=== PATIENT | female | born 1990 | race Caucasian/White ===

== ENCOUNTER → 2017-06-25 13:12 | Outpatient (CLI) | payer OTHER, MEDICAID, SELFPAY ==
[2017-06-25 13:38] LABS: Absolute Lymphocyte Count 2.62 X10^3/ul (0.83-4.51); Absolute Neutrophil Count 8.6 X10^3/uL (2.0-7.7); Basophil# 0.03 X10^3/uL; Basophil% 0.2 % (0-1); Eosinophil# 0.13 X10^3/uL; Eosinophils% 1.1 % (0-5); Lymphocyte # 2.62 X10^3/ul (4.0); Lymphocyte % 21.5 % (19-41); Mean Corp Hgb Conc 33.3 g/gl (32-36); Mean Corpuscular Hgb 31.2 pg (27.0-32.0); Mean Corpuscular Volume 93.5 fL (81-99); Mean Platelet Vol. 10.2 fl (6.2-12.0); Monocyte# 0.68 X10^3/uL; Monocyte% 5.6 % (0-10); Neutrophil # 8.59 X10^3/uL (2.7-7.7); Neutrophil % 70.4 % (47-70); Platelet Count 291 K/mm3 (150-450); RBC Distribution Width CV 12.6 % (11.6-14.6); RBC Distribution Width SD 42.9 fl (35.1-43.9); Red Blood Count 3.85 M/mm3 (4.2-5.4); White Blood Count 12.2 K/mm3 (4.4-11.0)
[2017-06-25 13:40] LABS: POSITIVE COUNT NO; POSITIVE DIFFERENTIAL NO; POSITIVE MORPHOLOGY NO
[2017-06-25 13:52] LABS: Glucose Challenge Gest 1H 50g 129 mg/dL (70-140)
== END ==
PROVIDERS: Visit Provider Obstetrics & Gynecology
DX: O09.90 Supervision of high risk pregnancy, unspecified, unspecified trimester (principal); Z3A.00 Weeks of gestation of pregnancy not specified
CPT/HCPCS: 36415; 82950; 85025

== ENCOUNTER → 2017-07-11 19:05 | Outpatient (CLI) | payer OTHER, MEDICAID, SELFPAY | PROVIDERS: Visit Provider Nurse Practitioner Women's Health | DX: O23.40 Unspecified infection of urinary tract in pregnancy, unspecified trimester (principal); Z3A.00 Weeks of gestation of pregnancy not specified | CPT/HCPCS: 87086; 87088; 87186 ==

== ENCOUNTER → 2017-07-25 14:31 | Outpatient (CLI) | payer OTHER, MEDICAID, SELFPAY | PROVIDERS: Visit Provider Obstetrics & Gynecology | DX: O09.90 Supervision of high risk pregnancy, unspecified, unspecified trimester (principal); Z3A.00 Weeks of gestation of pregnancy not specified | CPT/HCPCS: 87086; 87088; 87186 ==

== ENCOUNTER 2017-08-13 22:30 | Inpatient (IN) | payer OTHER, MEDICAID, SELFPAY ==
[2017-08-13] MEDS: Betamethasone/Betamethasone 30 MG/5 ML Vial 12 MG IM (22:44)
[2017-08-13] MEDS: Lactated Ringers 1,000 ML 50 ML IV (22:45)
[2017-08-13 22:50] VITALS: BMI 32.5
[2017-08-13 23:11] LABS: Hematocrit 36.8 % (37-47); Hemoglobin 12.2 g/dl (12.0-15.0); Mean Corp Hgb Conc 33.2 g/gl (32-36); Mean Corpuscular Hgb 30.6 pg (27.0-32.0); Mean Corpuscular Volume 92.2 fL (81-99); Platelet Count 259 K/mm3 (150-450); RBC Distribution Width CV 13.5 % (11.6-14.6); Red Blood Count 3.99 M/mm3 (4.2-5.4)
[2017-08-13 23:13] LABS: Scan Indicated on CBC? Y/N NO
[2017-08-14 01:03] LABS: Group B Strep DNA By PCR Negative (Negative); Internal Control PASS; Probe Check PASS; Specimen Processing Control PASS
[2017-08-14] MEDS: Lactated Ringers 1,000 ML 50 ML IV ×4 (02:23→14:00)
[2017-08-14] MEDS: Ondansetron 4 MG/2 ML Vial IV (02:33)
[2017-08-14] MEDS: fentaNYL-bupivacaine (epidural) 100 ML BAG EPIDURAL ×2 (02:48→12:30)
--- NOTE | 2017-08-14 13:08 | PCM.PN.BLA ---
Progress Note LATE ENTRY FROM VISIT AT 8:20 am 35 4/7 wk EGA Comfortable w/ epidural AVSS EFM category I tracing. Baseline 120-130s accels mod variability. UCs difficult to assess. at times q 3-5 mins CX: 6 cm /95/-1 A/P: 35 4/7 wk labor. Progressing very slowly. Betamethasone given. continue labor. Anticipate
--- NOTE | 2017-08-14 13:10 | PCM.PN.BLA ---
Progress Note LABOR PROGRESS NOTE Comfortable w/ epidural. AVSS EFM Category I tracing. 120-130 avg variability/ mod. Accels. UCs difficult to trace CX check per last RN check: 7-8 cm A/P: 35 4/7 wk labor. continue labor. anticipate
[2017-08-14] MEDS: Oxytocin 30 units/NS 500 ml 30 UNITS/500 ML IV.SOLN 334 UNITS IV (15:40)
[2017-08-14] MEDS: Oxytocin 30 units/NS 500 ml 30 UNITS/500 ML IV.SOLN 167 UNITS IV (16:20)
[2017-08-14] MEDS: Ibuprofen 600 MG Tablet PO (17:10)
[2017-08-14 19:50] VITALS: BP 118/70; PULSE 106; RESP 16; TEMP 37; O2SAT 99
--- NOTE | 2017-08-14 20:02 | PCM.HP.OB ---
- Problem List (1) labor Status: Acute Qualifiers: labor trimester: third trimester Fetus number: single or unspecified fetus (2) 35 to 36 weeks gestation of Status: Acute History Date of Admission: 08/13/17 - LATE ENTRY H AND P -- FROM EARLY AM VISIT 08/14/17 Final MATT: 09/14/17 Gestational age: 35 Weeks and 4 Days History of this : 26 yo with 16 wk care EDC of 09/14/17, by LMP 12/08/16, presents with CC of UCs. Admitted in labor at 35 3/7 wk EGA . OB CARE started at 16 wk, complicated by: 1.) UTI treated 07/11/17 with Macrobid 2.) Thrombosed hemorrhoid , treated. 3.) FOB no longer involved with patient but present at delivery Labs: O positive, rubella immune, RPR neg, HepBSAg negative. HIV negative. CG and chlamydia negative. 1 hr glucola 129. Past OB: negative. 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 Surgical History: wisdom tooth extraction. Family history: heart disease. Social history: no alcohol or drugs, but a daily smoker NKDA Medications: vitamin Allergies strawberry Allergy (Verified 08/13/17 22:51) Hives Current Medications vitamin Smoking Status: Current every day smoker Alcohol: None Drug Use: none Number of Fetus(es): 1 Review of Systems Constitutional: Denies: Anorexia Eyes: Denies: Blurred vision Cardiovascular: Denies: Chest Pain Gastrointestinal: Reports: Abdominal Pain - contractions Physical Exam General: Alert, Oriented x3, Cooperative, No apparent distress - comfortable with epidural Abdomen: Soft, Gravid Extremities:: No clubbing, No edema Estimated gestational size: Appropriate for gestational size Cervix Dilation (cm): 5 - 5 cm at presentation Assessment/Plan Active and Suspected Problems (Last Reviewed 08/08/17 @ 13:05 by Columba Raman) labor (Acute) 35 to 36 weeks gestation of (Acute) 35 3/7 wk EGA , admitted in labor. Betamethasone and observation of labor planned Epidural placed per patient request Watch labor. Anticipate .
--- NOTE | 2017-08-14 20:12 | HP.PCM_ITS ---
- Problem List (1) labor Status: Acute Qualifiers: labor trimester: third trimester Fetus number: single or unspecified fetus (2) 35 to 36 weeks gestation of Status: Acute History Date of Admission: 08/13/17 - LATE ENTRY H AND P -- FROM EARLY AM VISIT Final MATT: 09/14/17 Gestational age: 35 Weeks and 4 Days History of this : 26 yo with 16 wk care EDC of 09/14/17, by LMP 12/08/16, presents with CC of UCs. Admitted in labor at 35 3/7 wk EGA . OB CARE started at 16 wk, complicated by: 1.) UTI treated 07/11/17 with Macrobid 2.) Thrombosed hemorrhoid , treated. 3.) FOB no longer involved with patient but present at delivery Labs: O positive, rubella immune, RPR neg, HepBSAg negative. HIV negative. CG and chlamydia negative. 1 hr glucola 129. Past OB: negative. 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 Surgical History: wisdom tooth extraction. Family history: heart disease. Social history: no alcohol or drugs, but a daily smoker NKDA Medications: vitamin Allergies strawberry Allergy (Verified 08/13/17 22:51) Hives Current Medications vitamin Smoking Status: Current every day smoker Alcohol: None Drug Use: none Number of Fetus(es): 1 Review of Systems Constitutional: Denies: Anorexia Eyes: Denies: Blurred vision Cardiovascular: Denies: Chest Pain Gastrointestinal: Reports: Abdominal Pain - contractions Physical Exam General: Alert, Oriented x3, Cooperative, No apparent distress - comfortable with epidural Abdomen: Soft, Gravid Extremities:: No clubbing, No edema Estimated gestational size: Appropriate for gestational size Cervix Dilation (cm): 5 - 5 cm at presentation Assessment/Plan Active and Suspected Problems (Last Reviewed 08/08/17 @ 13:05 by Columba Raman) labor (Acute) 35 to 36 weeks gestation of (Acute) 35 3/7 wk EGA , admitted in labor. Betamethasone and observation of labor planned Epidural placed per patient request Watch labor. Anticipate .
--- NOTE | 2017-08-14 20:16 | PCM.OB.VAG ---
- Problem List (1) labor Status: Acute Qualifiers: labor trimester: third trimester Fetus number: single or unspecified fetus (2) 35 to 36 weeks gestation of Status: Acute Vaginal Delivery Maternal Presentation: Active Labor 35 3/7 wk EGA , labor. Amniotic Membrane Rupture Type: - Final MATT: 09/14/17 Gestational age: 35 Weeks and 4 Days doctor who attended delivery (if requested by OB): Marilou Carver Date of Procedure: 08/14/17 Pre-Operative Diagnosis: 35 3/7 wk EGA , labor Post-Operative Diagnosis: 35 4/7 wk delivery Surgery/ Procedure Performed: Vacuum Assisted Vaginal Delivery Type of Anesthesia: Epidural Description of Procedure: Vacuum assisted vaginal delivery of a driscoll viable female over intact perineum. Outlet station, ANAY. Epidural catheter in place, Jimenez catheter in place. Single pull in green zone of Kiwi vacuum extractor with maternal expulsive effort resulted in delivery of vertex. Nuchal cord x one reduced on perineum. shoulders delivered easily. Infant to maternal abdomen with spontaneous cry. Cord clamped x two and cut. Routine cord blood for typing collected. PP exam; 2nd degree vaginal laceration repaired under epidural to hemostatic and intact with 3-0 Vicryl. Abrasions noted at anterior perineum, and posterior introitus. NO other repair required. EBL 200 cc Placenta delivered by spont expulsion, expression. 3V cord, normal appearing, intact with trailing membranes Presentation: Vertex, ANAY Placental Delivery Description: Spontaneous, Expressed Placenta Disposition: [facility] Cord Vessel Description: 3 Vessels Nuchal Cord Compression: Without compression Cord Entanglement: Around neck x 1, loose Drain: Jimenez to straight drain Estimated Blood Loss: 200 Infant A gender: Female (1 minute): 9 (5 minute): 9 Episiotomy Description: None Laceration: Vaginal Extension/lac, 2nd degree - abrasions also noted, not repaired as hemostatic. Medications given after delivery: IV Pitocin Complications: None
[2017-08-14] MEDS: AMOXICILLIN 500 MG CAPSULE PO (22:28)
[2017-08-15 00:39] VITALS: BP 120/57; PULSE 74; RESP 18; TEMP 36.8; O2SAT 99
[2017-08-15 04:55] VITALS: BP 122/64; PULSE 63; RESP 18; TEMP 36.7; O2SAT 99
[2017-08-15] MEDS: AMOXICILLIN 500 MG CAPSULE PO ×3 (05:54→21:56)
[2017-08-15 06:09] LABS: Hematocrit 33.4 % (37-47); Hemoglobin 11.2 g/dl (12.0-15.0); Mean Corp Hgb Conc 33.5 g/gl (32-36); Mean Corpuscular Hgb 31.2 pg (27.0-32.0); Mean Platelet Vol. 12.2 fl (6.2-12.0); Platelet Count 195 K/mm3 (150-450); RBC Distribution Width CV 13.7 % (11.6-14.6); Red Blood Count 3.59 M/mm3 (4.2-5.4); White Blood Count 19.7 K/mm3 (4.4-11.0)
[2017-08-15 06:10] LABS: Scan Indicated on CBC? Y/N NO
--- NOTE | 2017-08-15 07:00 | PCM.PN.OB ---
Patient Problems: Active and Suspected Problems (Last Reviewed 08/08/17 @ 13:05 by Columba Raman) labor (Acute) 35 to 36 weeks gestation of (Acute) Subjective: PPD#1 labor Doing well. no concerns voiced. Taking Amoxicillin tid for a UTI No pain med needed. baby about 5 1/2 # per patient, and has been nursing. Doing OK with blood sugars. - Physical Exam General: Alert, Oriented x3, Cooperative, No apparent distress HEENT: Atraumatic Neck: Supple Abdomen: Soft - fundus firm NT at 2 cm inferior to umbilicus Neurological: Cranial nerves II-XII grossly intact Psych/Mental Status: Normal Affect Vital Signs Temp Pulse Resp BP Pulse Ox 98.1 F 63 18 122/64 H 99 08/15/17 04:55 08/15/17 04:55 08/15/17 04:55 08/15/17 04:55 08/15/17 04:55 Oxygen Delivery Method Room Air Weight: 80.558 kg Body Mass Index (BMI) 32.5 Intake and Output for Last 24 Hours 08/13/17 08/14/17 08/15/17 23:59 23:59 23:59 Intake Total 2297 / 2297 Output Total 850 / 850 Balance 1447 / 1447 Laboratory Tests Past 24 Hrs 08/15/17 06:00 WBC 19.7 H RBC 3.59 L Hgb 11.2 L Hct 33.4 L MCV 93.0 MCH 31.2 MCHC 33.5 RDW 13.7 RDW Differential 45.0 H Plt Count 195 MPV 12.2 H Medical Necessity - Tobacco Use Smoking Status: Current every day smoker Assessment/Plan Active and Suspected Problems (Last Reviewed 08/08/17 @ 13:05 by Columba Raman) labor (Acute) 35 to 36 weeks gestation of (Acute) PPD#1 at 35 3/7 wk EGA Stable pp. Continue care.
[2017-08-15 08:16] VITALS: BP 120/71; PULSE 70; RESP 16; TEMP 37
--- NOTE | 2017-08-15 13:11 | PCM.DCVAG ---
Discharge Diet: No Restrictions Discharge Activity: May Shower, May Take a Tub Bath May resume sexual activity in: 4-6 weeks Additional Activity Instructions:: Nothing in the vagina for 4-6 weeks. You may return to work/school in 6 weeks. Additional Instructions: If you experience any of the following, contact your healthcare provider. Bleeding that soaks a pad every hour for 2 hours Fever 100.4 or higher Unrelieved abdominal pain Problems urinating (including inability to urinate or burning while urinating). Visual changes Severe headache Flu-like symptoms Pain or redness in one of both of your breasts Pain, warmth, tenderness or swelling in your legs, especially the calf area Frequent nausea and vomiting Symptoms of depression or anxiety If you experience any of the following, call 911 or go to the nearest Emergency Room. Chest pain Problems breathing Seizure activity Partial or complete paralysis of a body part, slurred speech, weakness or drooping of the face, or a sudden inability to walk or hold your balance Allergies/Adverse Reactions: Allergies strawberry Allergy (Verified 08/13/17 22:51) Hives Medications to take at Discharge vitamin,calcium,byjhqtil-twef-qppgz acid tablet 1 tab PO QDAY 04/02/17 Amoxicillin [Amoxil] 500 mg PO TID 08/13/17 Please Follow Up With: Alexandra Kebede MD When: Call to make an appointment with your doctor in 6 weeks. Primary Care Physician: Care Physician,No Primary [Primary Care Provider] - Proposed Discharge Date: 08/16/17
--- NOTE | 2017-08-15 13:12 | DCINST_ITS ---
Discharge Diet: No Restrictions Discharge Activity: May Shower, May Take a Tub Bath May resume sexual activity in: 4-6 weeks Additional Activity Instructions:: Nothing in the vagina for 4-6 weeks. You may return to work/school in 6 weeks. Additional Instructions: If you experience any of the following, contact your healthcare provider. * Bleeding that soaks a pad every hour for 2 hours * Fever 100.4 or higher * Unrelieved abdominal pain * Problems urinating (including inability to urinate or burning while urinating) . * Visual changes * Severe headache * Flu-like symptoms * Pain or redness in one of both of your breasts * Pain, warmth, tenderness or swelling in your legs, especially the calf area * Frequent nausea and vomiting * Symptoms of depression or anxiety If you experience any of the following, call 911 or go to the nearest Emergency Room. * Chest pain * Problems breathing * Seizure activity * Partial or complete paralysis of a body part, slurred speech, weakness or drooping of the face, or a sudden inability to walk or hold your balance Allergies/Adverse Reactions: Allergies strawberry Allergy (Verified 08/13/17 22:51) Hives Medications to take at Discharge vitamin,calcium,nrklbecv-tcsb-xvqfz acid tablet 1 tab PO QDAY 04/02/17 Amoxicillin [Amoxil] 500 mg PO TID 08/13/17 Please Follow Up With: Alexandra Kebede MD When: Call to make an appointment with your doctor in 6 weeks. Primary Care Physician: Care Physician,No Primary [Primary Care Provider] - Proposed Discharge Date: 08/16/17
[2017-08-15 13:30] VITALS: BP 126/78; PULSE 71; RESP 16; TEMP 36.1; O2SAT 98
[2017-08-15] MEDS: Prenatal Vits Tablet 1 TABLET PO (15:10)
[2017-08-15 16:08] VITALS: BP 149/81; PULSE 65; RESP 16; TEMP 37.1; O2SAT 98
[2017-08-15 19:26] VITALS: BP 125/70; PULSE 73; RESP 16; TEMP 36.9
[2017-08-16 02:25] VITALS: BP 123/66; PULSE 75; RESP 18; TEMP 36.6
[2017-08-16] MEDS: AMOXICILLIN 500 MG CAPSULE PO ×2 (07:18→15:20)
--- NOTE | 2017-08-16 08:38 | PCM.PN.OB ---
Patient Problems: Active and Suspected Problems (Last Reviewed 08/08/17 @ 13:05 by Columba Raman) labor (Acute) 35 to 36 weeks gestation of (Acute) Subjective: No specific complaints. Breast feeding. baby under bilirubin lights. Bleeding light Objective: Afeb VSS - Physical Exam General: Alert, Oriented x3, Cooperative, No apparent distress Lungs: Clear to auscultation, Normal air movement Cardiovascular: Regular rate, Regular Rhythm Abdomen: Soft, Non Tender, Non-Distended, - - Fundus nontender Skin: No rashes Neurological: Neuro grossly intact Psych/Mental Status: Normal Affect Comment: Lochia light Vital Signs Temp Pulse Resp BP Pulse Ox 98 F 75 18 123/66 H 98 08/16/17 02:25 08/16/17 02:25 08/16/17 02:25 08/16/17 02:25 08/15/17 16:08 Oxygen Delivery Method Room Air Weight: 177 lb 9.6 oz Body Mass Index (BMI) 32.5 Intake and Output for Last 24 Hours 08/14/17 08/15/17 08/16/17 23:59 23:59 23:59 Intake Total 2297 / 2297 Output Total 850 / 850 Balance 1447 / 1447 Medical Necessity - Tobacco Use Smoking Status: Current every day smoker Assessment/Plan Active and Suspected Problems (Last Reviewed 08/08/17 @ 13:05 by Columba Raman) labor (Acute) 35 to 36 weeks gestation of (Acute) Doing well on PP day#2. Cleared for discharge home today. May be discharged home today. If baby held for elevated bilirubin levels will hold in hotel status.
--- NOTE | 2017-08-16 08:42 | PCM.DC.SUM ---
Discharge Date and Diagnosis - Problem List Patient Problems: Active and Suspected Problems (Last Reviewed 08/08/17 @ 13:05 by Columba Raman) labor (Acute) 35 to 36 weeks gestation of (Acute) Date of Admission: 08/13/17 - LATE ENTRY H AND P -- FROM EARLY AM VISIT 08/14/17 Date of Discharge: 08/16/17 - Primary Discharge Diagnosis Active and Suspected Problems (Last Reviewed 08/08/17 @ 13:05 by Columba Raman) labor (Acute) 35 to 36 weeks gestation of (Acute) Hospital Course and Treatment Operations: None Procedures: - - Summary of Care Provided: The patient is a 26 year old F [admitted progressed in labor then pushed to deliver a live without complication. Discharged home on PP day#2.] Discharge Diet: No Restrictions Discharge Activity: May Shower, May Take a Tub Bath May resume sexual activity in: 4-6 weeks Additional Activity Instructions:: Nothing in the vagina for 4-6 weeks. You may return to work/school in 6 weeks. Call your doctor if your incision/area has: Sudden Increased Bleeding, Increased Pain/ Swelling Call your doctor if you observe: Fever of 101 or Higher, Inability to urinate, Shortness of breath, Chest pain, Calf discomfort, Uncontrolled pain Cleanse incision/area with: Soap & Water Home Medications: Medications to take at Discharge vitamin,calcium,tiuwcutr-pmtb-ujdkt acid tablet 1 tab PO QDAY 04/02/17 Amoxicillin [Amoxil] 500 mg PO TID 08/13/17 Primary Care Physician: Care Physician,No Primary [Primary Care Provider] - Please Follow Up With: Alexandra Kebede MD When: 6 weeks Disposition: Home Minutes spent on discharge:: 15 Patient Condition:: Good Medical Necessity - Tobacco Use Smoking Status: Current every day smoker Meaningful Use Info Meaningful Use Diagnoses (Choose all that apply): None applicable
[2017-08-16 08:45] VITALS: BP 138/79; PULSE 60; RESP 20; TEMP 36.6; O2SAT 96
[2017-08-16] MEDS: Prenatal Vits Tablet 1 TABLET PO (12:22)
[2017-08-16 13:50] VITALS: BP 133/79; PULSE 62; TEMP 36.5; O2SAT 94
[2017-08-16 19:40] VITALS: BP 140/80; PULSE 66; RESP 17; TEMP 36.2; O2SAT 96
== END 2017-08-16 19:55 | disposition home or self-care (01) | DRG 775 ==
LOC: WPOUT 22:35
PROVIDERS: Obstetrics & Gynecology; Admitting Provider Obstetrics & Gynecology; Visit Provider Obstetrics & Gynecology
DX: O60.14X0 Preterm labor third trimester with preterm delivery third trimester, not applicable or unspecified (principal); N39.0 Urinary tract infection, site not specified; Z37.0 Single live birth; O70.1 Second degree perineal laceration during delivery; O69.81X0 Labor and delivery complicated by cord around neck, without compression, not applicable or unspecified; O99.333 Smoking (tobacco) complicating pregnancy, third trimester; Z3A.35 35 weeks gestation of pregnancy
CPT/HCPCS: 59025; 59050; 85027; 86850; 86900; 87081; 87653; 99218; J7120; G0378; J0702; J2405